=== PATIENT | female | born 1945 | race Caucasian/White ===

== ENCOUNTER → 2025-07-06 | Day surgery (SDC) | payer MEDICARE, OTHER ==
[~2025-07-06] MED LIST: ALPHA-LIPOIC ACID; AMITIZA8 MCG PO; AMLODIPINE BESYL5 MG PO; CELEBREX200 MG PO; COQ-10100 MG; CRESTOR40 MG; DHEA25 MG; DIOVAN80 MG PO; FAMOTIDINE20 MG PO; HYDROCHLOROTHIA25 MG PO; LACTATED RINGER'S 1,000 ML ONE; LCARNITINE; LIDOCAINE HCL 10 MG/ML VIAL INJ ONE; LIDOCAINE HCL 2% LOCAL INJ 5 ML SDV VIAL INJ ONE; METOPROLOL SUCC50 MG PO; PLAVIX75 MG PO; PROPOFOL IV EMULSION 10 MG/ML 20 ML VIAL ONE; PROTONIX20 MG PO; SOMA350 MG PO; ULTRAM 50MG50 MG PO; VITAMIN B350 MG; VITAMIN D31 GM; VITAMIN K
[2025-07-06 09:07] LABS: BASOPHILS % 0.1 % (0.0-1.0); EOSINOPHILS % 0.1 % (0.0-6.0); LYMPHOCYTES % 13.2 % (18.0-39.1); MONOCYTES % 10.4 % (4.4-11.3); NEUTROPHILS % 75.8 % (38.7-80.0); RED CELL DISTRIBUTION WIDTH 17.7 % (11.7-14.4)
[2025-07-06 11:50] VITALS: BP 157/68; PULSE 59; RESP 16; O2SAT 97
== END | disposition home or self-care (01) ==
LOC: ENDO 08:35
PROVIDERS: ATTEND Internal Medicine Gastroenterology
DX: K29.00 Acute gastritis without bleeding (principal); K29.50 Unspecified chronic gastritis without bleeding; R13.10 Dysphagia, unspecified; K21.9 Gastro-esophageal reflux disease without esophagitis; K57.30 Diverticulosis of large intestine without perforation or abscess without bleeding; K58.1 Irritable bowel syndrome with constipation; K44.9 Diaphragmatic hernia without obstruction or gangrene; I10 Essential (primary) hypertension; Z78.9 Other specified health status; Z71.3 Dietary counseling and surveillance; E78.5 Hyperlipidemia, unspecified; M06.9 Rheumatoid arthritis, unspecified; M19.90 Unspecified osteoarthritis, unspecified site; G83.9 Paralytic syndrome, unspecified; Z88.6 Allergy status to analgesic agent; Z91.041 Radiographic dye allergy status; Z99.3 Dependence on wheelchair; Z79.02 Long term (current) use of antithrombotics/antiplatelets; Z68.35 Body mass index [BMI] 35.0-35.9, adult; Z86.12 Personal history of poliomyelitis
CPT/HCPCS: 36415; 43239; 43450; 85025; 88305; 88342; 93005; J2003